=== PATIENT | female | born 1955 | race African-American/Black ===

== ENCOUNTER 2018-05-04 08:55 | Inpatient (IN) | payer OTHER, MEDICAID ==
[~2018-05-04] VITALS: Ht 162.6 cm; Wt 68.1 kg
[2018-05-04 11:35] LABS: BASOPHILS % 0.3 % (0.0-2.0); EOSINOPHILS % 2.4 % (0.0-5.0); HEMATOCRIT. 34.7 % (36.0-48.0); HEMOGLOBIN. 11.7 g/dL (12.0-16.0); LYMPHOCYTES % 14.5 % (20.0-50.0); MEAN CORPUSCULAR HEMOGLOBIN 29.4 pg (28.0-32.0); MEAN PLATELET VOLUME 7.7 fl (7.4-10.4); MONOCYTES % 5.9 % (2.0-8.0); NEUTROPHILS % 76.9 % (40.0-76.0); PLATELET 381 x1000/uL (130-400); RED BLOOD CELL COUNT 3.99 mill/uL (4.2-5.4); RED CELL DISTRIBUTION WIDTH 14.5 % (11.6-14.6)
[2018-05-04 11:38] LABS: CHLORIDE 108 mEq/L (98-107)
[2018-05-04 11:39] LABS: ETHANOL BLOOD < 10 mg/dL
[2018-05-04 11:49] LABS: CLARITY URINE CLOUDY (CLEAR); COLOR URINE YELLOW (YELLOW); KETONES URINE NEGATIVE (NEGATIVE); LEUKOCYTE ESTERASE URINE 1+ (NEGATIVE); NITRITE URINE NEGATIVE (NEGATIVE); OCCULT BLOOD URINE 3+ (NEGATIVE); PROTEIN URINE 2+ (NEGATIVE); SPECIFIC GRAVITY URINE 1.023 (1.005-1.030)
[2018-05-04 12:20] LABS: *AMPHETAMINES SCREEN URINE NEGATIVE (NEGATIVE); *BARBITURATES SCREEN URINE NEGATIVE (NEGATIVE); *BENZODIAZEPINES SCREEN URINE NEGATIVE (NEGATIVE); *COCAINE SCREEN URINE NEGATIVE (NEGATIVE); METHADONE URINE SCREEN NEGATIVE (NEGATIVE)
[2018-05-04 12:21] LABS: CANNABINOID URINE SCREEN NEGATIVE (NEGATIVE); OPIATES URINE SCREEN NEGATIVE (NEGATIVE); PHENCYCLIDINE URINE SCREEN NEGATIVE (NEGATIVE)
[2018-05-04] MEDS ORDERED: LORAZEPAM 1MG TABLET PO ONE (14:45)
[2018-05-04 15:33] LABS: PROTHROMBIN TIME 10.5 sec (9.1-11.1)
[2018-05-04] MEDS ORDERED: HYDROCODONE/ACETAMINOPHEN 5/325MG TABLET PO PRN (16:15)
[2018-05-04] MEDS ORDERED: ACETAMINOPHEN 325MG TABLET PO PRN (16:15)
[2018-05-04] MEDS ORDERED: IPRATROPIUM/ALBUTEROL 0.5-3(2.5)MG/3ML NEB INH PRN (16:15)
[2018-05-04] MEDS ORDERED: ONDANSETRON HCL 4MG/2ML VIAL IV PRN (17:00)
[2018-05-04 17:30] VITALS: BP 151/76
[2018-05-04] MEDS ORDERED: ATOR80TA PO (18:23)
[2018-05-04] MEDS ORDERED: ASPI-1159 PO (18:23)
[2018-05-04] MEDS ORDERED: ESOM40CA PO (18:32)
[2018-05-04] MEDS ORDERED: ACET-2178 PO (18:32)
[2018-05-04] MEDS ORDERED: PROC-11 PO (18:32)
[2018-05-04] MEDS ORDERED: MAGN800O PO (18:32)
[2018-05-04] MEDS ORDERED: DOCU-138 PO (18:32)
[2018-05-04] MEDS ORDERED: METO5TAB86 PO (18:32)
[2018-05-04] MEDS ORDERED: AMLO2.5T2 PO (18:32)
[2018-05-04] MEDS: LORAZEPAM 2MG/ML CPJ IV PRN (18:44)
[2018-05-04] MEDS: ENOXAPARIN 40MG/0.4ML SYR SUBCUT SCH (18:57)
[2018-05-04] MEDS ORDERED: LORAZEPAM 2MG/ML CPJ IV NR (19:30)
[2018-05-04 20:00] VITALS: BP 152/67
[2018-05-04 22:13] LABS: HEPATITIS B SURFACE ANTIGEN NEGATIVE
[2018-05-04 22:41] LABS: HEPATITIS B CORE AB IGM NEGATIVE
[2018-05-04 22:43] LABS: HEPATITIS A AB IGM NEGATIVE (NEGATIVE)
[2018-05-04 23:32] LABS: CREATINE KINASE 102 IU/L (26-192)
[2018-05-05] VITALS: BP 130/68
[2018-05-05 04:00] VITALS: BP 135/60
[2018-05-05] MEDS: LORAZEPAM 2MG/ML CPJ IV PRN ×3 (05:46→21:13)
[2018-05-05 06:48] LABS: BASOPHILS % 0.4 % (0.0-2.0); EOSINOPHILS % 2.3 % (0.0-5.0); HEMATOCRIT. 33.4 % (36.0-48.0); HEMOGLOBIN. 11.3 g/dL (12.0-16.0); LYMPHOCYTES % 22.1 % (20.0-50.0); MEAN CORPUSCULAR HEMOGLOBIN 29.4 pg (28.0-32.0); MEAN CORPUSCULAR VOLUME 86.6 fL (81.0-99.0); MEAN PLATELET VOLUME 7.4 fl (7.4-10.4); MONOCYTES % 8.1 % (2.0-8.0); NEUTROPHILS % 67.1 % (40.0-76.0); PLATELET 359 x1000/uL (130-400); RED BLOOD CELL COUNT 3.85 mill/uL (4.2-5.4); RED CELL DISTRIBUTION WIDTH 14.8 % (11.6-14.6)
[2018-05-05 07:00] LABS: CHLORIDE 110 mEq/L (98-107)
[2018-05-05 07:11] LABS: T4 FREE 1.07 ng/dL (0.76-1.46)
[2018-05-05 07:14] LABS: CREATINE KINASE 96 IU/L (26-192)
[2018-05-05 07:16] LABS: LDL CHOLESTEROL 64 mg/dL (5-100)
[2018-05-05 07:18] LABS: HDL CHOLESTEROL 32 mg/dL (40-59)
[2018-05-05 08:00] VITALS: BP 102/63
[2018-05-05] MEDS ORDERED: ASPIRIN 81MG EC TABLET PO SCH (09:00)
[2018-05-05 12:00] VITALS: BP 156/67
[2018-05-05 16:00] VITALS: BP 142/75
[2018-05-05] MEDS: ASPIRIN 81MG TABLET PO SCH (18:15)
[2018-05-05] MEDS: LOSARTAN POTASSIUM 50 MG TABLET PO SCH (18:15)
[2018-05-05] MEDS: PANTOPRAZOLE 40MG DR TABLET PO SCH (18:15)
[2018-05-05] MEDS: ENOXAPARIN 40MG/0.4ML SYR SUBCUT SCH (18:16)
[2018-05-05 19:45] VITALS: BP 152/65
[2018-05-05] MEDS: ATORVASTATIN CALCIUM 40MG TABLET PO SCH (21:21)
[2018-05-06] VITALS (10 sets, daily range): BP systolic 113–170; BP diastolic 56–99
[2018-05-06] MEDS: RISPERIDONE 0.5MG TABLET PO SCH ×3 (00:06→17:33)
[2018-05-06] MEDS: PANTOPRAZOLE 40MG DR TABLET PO SCH (08:27)
[2018-05-06] MEDS: ASPIRIN 81MG TABLET PO SCH (08:27)
[2018-05-06] MEDS: LOSARTAN POTASSIUM 50 MG TABLET PO SCH ×2 (08:27→21:18)
[2018-05-06] MEDS: ENOXAPARIN 40MG/0.4ML SYR SUBCUT SCH (17:34)
[2018-05-06] MEDS: ATORVASTATIN CALCIUM 40MG TABLET PO SCH (21:17)
[2018-05-07] VITALS: BP 135/80
[2018-05-07 04:00] VITALS: BP 136/70
[2018-05-07 08:00] VITALS: BP 107/56
[2018-05-07] MEDS: LOSARTAN POTASSIUM 50 MG TABLET PO SCH ×2 (09:00→20:37)
[2018-05-07] MEDS: RISPERIDONE 0.5MG TABLET PO SCH ×2 (09:59→18:32)
[2018-05-07] MEDS: ASPIRIN 81MG TABLET PO SCH (09:59)
[2018-05-07] MEDS: PANTOPRAZOLE 40MG DR TABLET PO SCH (09:59)
[2018-05-07 12:00] VITALS: BP 109/60
[2018-05-07] MEDS: PIPERACILLIN/TAZ 3.375G PREMIX 50 ML IV SCH ×2 (13:59→22:24)
[2018-05-07 16:00] VITALS: BP 115/53
[2018-05-07] MEDS: ENOXAPARIN 40MG/0.4ML SYR SUBCUT SCH (18:32)
[2018-05-07 20:00] VITALS: BP 125/64
[2018-05-07] MEDS: ATORVASTATIN CALCIUM 40MG TABLET PO SCH (20:37)
[2018-05-08] VITALS (7 sets, daily range): BP systolic 101–144; BP diastolic 45–73
[2018-05-08] MEDS: PIPERACILLIN/TAZ 3.375G PREMIX 50 ML IV SCH ×2 (05:55→14:52)
[2018-05-08 06:50] LABS: HEMATOCRIT 33.7 % (36.0-48.0); HEMOGLOBIN 11.5 g/dL (12.0-16.0); MEAN CORPUSCULAR HEMOGLOBIN 29.7 pg (28.0-32.0); MEAN CORPUSCULAR VOLUME 86.8 fL (81.0-99.0); PLATELET 351 x1000/uL (130-400); RED BLOOD CELL COUNT 3.88 mill/uL (4.2-5.4); RED CELL DISTRIBUTION WIDTH 14.6 % (11.6-14.6)
[2018-05-08] MEDS: LOSARTAN POTASSIUM 50 MG TABLET PO SCH ×2 (08:58→21:00)
[2018-05-08] MEDS: PANTOPRAZOLE 40MG DR TABLET PO SCH (08:58)
[2018-05-08] MEDS: ASPIRIN 81MG TABLET PO SCH (08:58)
[2018-05-08] MEDS: RISPERIDONE 0.5MG TABLET PO SCH ×2 (08:58→18:51)
[2018-05-08] MEDS: ENOXAPARIN 40MG/0.4ML SYR SUBCUT SCH (18:51)
[2018-05-08] MEDS: ATORVASTATIN CALCIUM 40MG TABLET PO SCH (21:45)
[2018-05-09] MEDS ORDERED: FAMOTIDINE 20MG TABLET PO SCH (09:00)
== END 2018-05-08 22:10 | DRG 64 ==
LOC: ER 08:55 → ENRESERV 12:35 → CANRESERV 12:35 → 6WST 13:09 → EDBEDREQTM 13:10 → EDBEDREQ 13:10 → ENRESERV 15:41 → 6WST 05-05 09:55
PROVIDERS: ADMIT Internal Medicine; ATTEND Internal Medicine
PROC: 4A00X4Z Measurement of Central Nervous Electrical Activity, External Approach (ICD-10-PCS; principal; 2018-05-07)
DX: I63.511 Cerebral infarction due to unspecified occlusion or stenosis of right middle cerebral artery (principal); G93.40 Encephalopathy, unspecified; N39.0 Urinary tract infection, site not specified; G81.91 Hemiplegia, unspecified affecting right dominant side; D64.9 Anemia, unspecified; E66.9 Obesity, unspecified; R47.01 Aphasia; N20.0 Calculus of kidney; R41.0 Disorientation, unspecified; R74.0 Nonspecific elevation of levels of transaminase and lactic acid dehydrogenase [LDH]; I10 Essential (primary) hypertension; Z68.25 Body mass index [BMI] 25.0-25.9, adult; Z78.1 Physical restraint status; Z79.899 Other long term (current) drug therapy; Z79.82 Long term (current) use of aspirin
CPT/HCPCS: 36415; 70450; 70551; 71045; 76705; 80048; 80053; 80061; 80305; 81003; 82550; 82962; 83036; 83605; 84439; 84443; 84484; 85025; 85027; 85610; 86705; 86709; 86803; 87340; 92610; 93306; 93880; 97110; 97116; 97161; 97165; 97535; 99285; C1893; G0482; J1650; J2060; J2543; J7040